=== PATIENT | male | born 1940 | race Caucasian/White ===

== ENCOUNTER 2022-03-09 18:20 | Inpatient (IN) | payer MEDICARE, SELFPAY ==
[2022-03-09 18:46] VITALS: BP 142/51; PULSE 87; RESP 16; TEMP 36.6; O2SAT 96; BMI 32.2
[2022-03-09 20:32] VITALS: BP 149/44; PULSE 66; RESP 16; TEMP 36.4; O2SAT 94
[2022-03-09] MEDS: Acetaminophen 500 MG Tablet 1000 MG PO (21:07)
[2022-03-09] MEDS: Senna/Docusate Sodium 1 Tablet 2 TABLET PO (21:07)
[2022-03-09] MEDS: oxyCODONE 5 MG Tablet PO (21:08)
[2022-03-10] VITALS (8 sets, daily range): BP systolic 121–154; BP diastolic 42–72; PULSE 66–84; RESP 16–18; TEMP 36.4–36.8; O2SAT 93–96
[2022-03-10] MEDS: Acetaminophen 500 MG Tablet 1000 MG PO ×3 (04:44→20:30)
[2022-03-10] MEDS: oxyCODONE 5 MG Tablet PO ×3 (04:44→14:29)
[2022-03-10] MEDS: Enoxaparin 40 MG/0.4 ML Syringe SC (05:09)
[2022-03-10 05:42] LABS: Hematocrit 34.4 % (40-54); Hemoglobin 11.5 g/dL (13.0-16.5); Mean Corp Hgb Conc 33.4 g/dL (32-36); Mean Corpuscular Hgb 32.1 pg (27.0-32.0); Mean Corpuscular Volume 96.1 fL (80-94); Mean Platelet Vol. 8.6 fl (6.2-12.0); Platelet Count 305 K/mm3 (150-450); RBC Distribution Width CV 12.3 % (11.6-14.6); RBC Distribution Width SD 43.9 fl (35.1-43.9); Red Blood Count 3.58 M/mm3 (4.6-6.2); White Blood Count 6.8 K/mm3 (4.4-11.0)
[2022-03-10 06:21] LABS: ALB/GLOB Ratio 0.6 RATIO (0.9-2.4); AST(SGOT) 27 U/L (15-37); Alanine Aminotransfer ALT/SGPT 12 U/L (16-61); Albumin, Serum 2.3 g/dL (3.2-5.0); Alkaline Phosphatase 89 U/L (45-117); Anion Gap 3 (5-15); BUN 45 mg/dL (7-18); BUN/Creat Ratio 41.3 RATIO (10-20); Calcium,Total 9.1 mg/dL (8.5-10.1); Chloride 102 mmol/L (98-107); Creatinine, Serum 1.09 mg/dL (0.70-1.30); EST Glomerular Filtration Rate 69 mL/min (>60); Est Glom Filt Rate - Afr Amer 84 mL/min (>60); Estimated Creatinine Clearance 53.17 ml/min; Globulin 3.8 g/dL (2.2-4.2); Glucose 110 mg/dL (74-106); Magnesium 2.4 mg/dL (1.6-2.6); Phosphorus 3.7 mg/dL (2.5-4.9); Protein, Total 6.1 g/dL (6.4-8.2); Sodium Level 138 mmol/L (136-145)
[2022-03-10] MEDS: Juven (unflavored) Packet 1 PACKET PO ×2 (09:11→16:28)
[2022-03-10] MEDS: Gabapentin 400 MG Capsule PO ×3 (09:12→16:01)
[2022-03-10] MEDS: Senna/Docusate Sodium 1 Tablet 2 TABLET PO ×2 (09:12→20:29)
[2022-03-10] MEDS: Famotidine 20 MG Tablet PO (09:12)
--- NOTE | 2022-03-10 10:40 | HP.PCM_ITS ---
HPI - General General Date of Admission: 03/09/22 Date of Service: 03/10/22 Chief Complaint: Hx of long standing osteomyelitis/infected hardware/failure of R ankle TTC fusion. 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 HPI Narrative MORGAN FAROOQ, is a 81 YO M with a PMH of OA, GERD, hypertension, bilateral presbycusis, neuropathy, chronic pain, history of right ankle fusion in 2018, history of lumbar fusion and longstanding osteomyelitis of the right ankle. He has had many surgeries on the R ankle and his orthopedic surgeon felt that a R BKA was inevitable. Morgan was agreeable to the surgery and he was taken to the OR on 03/06/22 for a R BKA. The post operative course was unremarkable. He was seen by PT/OT post op and acute rehab was recommended. Morgan lives alone and has 3 steps to enter his home. He lives on 1 floor but, his laundry is in the basement. He had been using a rollator prior to the BKA. Morgan was transferred to the inpatient acute rehab floor at [facility] on 03/09/2022 for 3 hours of therapy daily to restore function/independence to a level that will allow him to return to his home and live independently going forward. Review of lab done 03/06/2022 shows a mildly macrocytic anemia with a hemoglobin of 12.3. HGB post op dropped to 11.5. Platelets were elevated at 441,000. Creatinine was 0.9 with a BUN of 25. Culture at the time of BKA grew few Staphylococcus lugdunensis sensitive to clin damycin, gentamicin, oxacillin, Bactrim and vancomycin. All lab done this morning at [facility] was personally reviewed. Hemoglobin is stable at 11.5. The white blood cell count is normal and platelets are within normal limits. Serum bicarb is mildly increased at 33. The potassium is 4.0 and the sodium is 138. BUN is markedly increased at 45 and his creatinine is 1.09, up from 0.9 preoperatively. The estimated creatinine clearance is 53. Fasting glucose is mildly elevated at 110. LFTs are within normal limits and magnesium and phosphorus are within normal limits. Calcium corrected for hypoalbuminemia is mildly increased to 10.5, possibly secondary to immobility. [facility] Medical History (Updated 03/10/22 @ 14:[address] Radha Skinner DO) GERD (gastroesophageal reflux disease) History of peptic ulcer disease HTN (hypertension) Insomnia Neuropathy Osteoarthritis Osteomyelitis of ankle or foot, right, acute Snoring Home Medications diclofenac sodium 100 mg tablet,extended release 24 hr 100 mg PO DAILY ARTHRITIS 03/09/22 [History Last Taken 03/09/22 08:00] gabapentin 400 mg capsule 400 mg PO TID NEUROPATHY 03/09/22 [History Last Taken 03/09/22] triamterene 75 mg-hydrochlorothiazide 50 mg tablet 1 tab PO DAILY BP 03/09/22 [History Last Taken 03/09/22 08:00] Allergy/AdvReac Type Severity Reaction Status Date / Time No Known Allergies Allergy Verified 03/09/22 19:55 Family History (Updated 03/10/22 @ 13:[address] Radha Skinner DO) Father Ruptured abdominal aortic aneurysm Mother Heart disease Congestive heart failure Other Sudden cardiac Family History other other (Denies FH of cancers, DM, strokes, heart disease other than the CHF in his mother.) Surgical History (Updated 03/10/22 @ 11:[address] Radha Skinner DO) Fusion of joint H/O bilateral cataract extraction History of below-knee amputation of right lower extremity History of herniorrhaphy History of lumbar spinal fusion History of total replacement of right ankle Hx of tonsillectomy Social History (Updated 03/10/22 @ 13:[address] Radha Skinner DO) adopted: No household members: none housing: house number of children: 1 Smoking Status: Former smoker pack-years: 60 Tobacco: How many years used: 40 how long ago did patient quit smoking: He quit smoking when he was 56 so, 25 years ago. Smoked 1 and 1/2 PPD alcohol intake: current alcohol intake frequency: 0-2 drinks per day Alcohol type: wine and hard liquor details: 2-3 drinks a day.....mixed and wine. substance use type: does not use ROS Constitutional Constitutional: Reports snoring, stops breathing during sleep and other Details: Has never had a sleep study. Takes Tylenol PM at bedtime to sleep. ; Denies anorexia, change in weight, chills, fatigue, fever(s), night sweats or weakness Eyes Eyes: Denies blurry vision, change in vision, eye pain or loss of vision ENT HEENT: Reports hearing loss; Denies abnormal hearing, dysphagia, headache(s), nasal congestion or sore throat Cardiovascular Cardiovascular: Denies chest pain, dyspnea on exertion, edema, lightheadedness, orthopnea, palpitations, paroxysmal nocturnal dyspnea or syncope Respiratory/Chest Respiratory/Chest: Denies cough, dyspnea, shortness of breath at rest, shortness of breath with exertion or wheezing Gastrointestinal Gastrointestinal: Reports dyspepsia; Denies abdominal pain, constipation, diarrhea, hematemesis, hematochezia, nausea or vomiting Genitourinary Genitourinary: Reports urinary frequency; Denies dysuria, hematuria, nocturia, urinary hesitancy, urinary incontinence or urinary urgency Musculoskeletal Musculoskeletal: Denies back pain, joint pain, joint swelling or neck pain Integumentary Integumentary: Reports alopecia; Denies jaundice Neurologic Neurologic: Reports radicular pain and other Details: has had radicular pain in both LE's but, he does not know why he has neuropathy.......I suspect due to nerve compression......has had a lumbar fusion in the past and he has been on Gabapentin for years ; Denies confusion, disequilibrium, dizziness, focal weakness, headache(s), paresthesias, seizures or tremor(s) Psychiatric Psychiatric: Reports depression and other Details: Depression was many years ago when he was getting ; Denies anxiety, homicidal ideation or suicidal ideation Endocrine Endocrinology: Denies change in body appearance, polydipsia or polyuria Hematologic/Lymphatic Hematologic/Lymphatic: Denies easy bleeding, easy bruising or lymphadenopathy Allergic/Immunologic Allergic/Immunologic: Denies rhinitis, eczemia or asthma Vital Signs Vital Signs Vital Signs: 03/09/22 18:46 03/09/22 20:32 03/09/22 20:54 Temperature 97.8 F 97.5 F L Temperature Source Temporal Temporal Pulse Rate 87 66 Pulse Strength Normal (2+) Respiratory Rate 16 16 Respiratory Effort Respiratory Pattern Blood Pressure 142/51 H 149/44 H Blood Pressure Mean 81 79 Blood Pressure Source Monitor Monitor Blood Pressure Position Semi-Fowlers Semi-Fowlers Blood Pressure Location Left Arm Right Arm Pulse Ox 96 94 Oxygen Delivery Method Room Air Room Air 03/09/22 22:00 03/10/22 00:15 03/10/22 07:41 Temperature 97.5 F L 97.9 F Temperature Source Temporal Temporal Pulse Rate 66 67 Pulse Strength Respiratory Rate 16 16 Respiratory Effort Normal Non-Labored Respiratory Pattern Normal Blood Pressure 149/44 H 154/65 H Blood Pressure Mean 79 94 Blood Pressure Source Monitor Blood Pressure Position Semi-Fowlers Blood Pressure Location Right Arm Pulse Ox 94 93 Oxygen Delivery Method Room Air Room Air Weight Weight: 212 lb Body Mass Index (BMI) 32.2 Physical Exam Const alert, oriented x3, no apparent distress and well nourished General Appearance: cooperative HEENT normocephalic and head/scalp atraumatic Mouth: moist mucous membranes abnormal Eyes PERRL, EOMs intact bilaterally, conjunctivae normal and no scleral icterus Neck supple and No nodes Neck Narrative: BL carotid bruits vs, radiation on CORTES from the RICS. Denies any hx of RF. 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 I suspect it also radiates into the bilateral carotid arteries or he could have bilateral carotid stenosis. GI normal to inspection, nondistended, normoactive bowel sounds, soft to palpation and non-tender GI Narrative: he has a ventral hernia despite having 2 surgeries to repair in the past. No masses and no rebound tenderness. no CVA tenderness Groin / Perineum Exam: Negative for edema or erythema Penis: normal penis Extremity Extremity Narrative: S/P R BKA. Will examine the stump with the next dressing change. The current bandage is dry. There is no edema of the L ankle. L DP pulse is strong. The R popliteal pulse is mildly decreased. Skin Rashes: no rashes Neuro oriented x3 and CN's II-XII intact bilaterally Psych mental status grossly normal, thought process normal, cooperative, affect normal, speech normal, activity/motor behavior normal, denies hallucinations, denies homicidal ideation and denies suicidal ideation Results Lab / Micro Data Result Diagrams: 03/10/22 05:31 03/10/22 05:31 Labs: Laboratory Results - last 24 hr 03/10/22 05:31: WBC 6.8, RBC 3.58 L, Hgb 11.5 L, Hct 34.4 L, MCV 96.1 H, MCH 32.1 H, MCHC 33.4, RDW Std Deviation 43.9, RDW Coeff of Sony 12.3, Plt Count 305, MPV 8.6 03/10/22 05:31: Sodium 138, Potassium 4.0, Chloride 102, Carbon Dioxide 33.0 H, Anion Gap 3 L, BUN 45 H, Creatinine 1.09, Estim Creat Clear Calc 53.17, Est GFR (MDRD) Af Amer 84, Est GFR (MDRD) Non-Af 69, BUN/Creatinine Ratio 41.3 H, Glucose 110 H, Calcium 9.1, Phosphorus 3.7, Magnesium 2.4, Total Bilirubin 0.50, AST 27, ALT 12 L, Alkaline Phosphatase 89, Total Protein 6.1 L, Albumin 2.3 L, Globulin 3.8, Albumin/Globulin Ratio 0.6 L Assessment & Plan Assessment/Plan (1) Hardware failure: PLAN: R ankle/foot (2) Osteomyelitis of ankle or foot, right, acute: PLAN: recurrent (3) History of below-knee amputation of right lower extremity: PLAN: 03/06/22 at [facility] (4) HTN (hypertension): (5) GERD (gastroesophageal reflux disease): PLAN: Continue famotidine (6) Neuropathy: PLAN: Continue gabapentin 400 mg 3 times daily (7) Osteoarthritis: (8) Macrocytic anemia: (9) Elevated BUN: PLAN: MM are moist......not sure why this is so elevated but, he was anemic prior to the BKA so will check a hemoccult stool. He has a remote hx of PUD and has dyspepsia at times and he is on Voltaren BID. Continue Voltaren at this time.....he s pretty adamant that he needs to have the Voltaren. (10) Snoring: (11) Insomnia: PLAN: Plan PLAN PT for gait stability OT for ADL's Analgesics as needed Bowel protocol Fall precautions Assess for Anxiety/Depression GI prophylaxis with famotidine DVT prophylaxis with Lovenox Follow up with PCP and orthopedic surgeon following DC from Rehab - PCP is Dr. Julio Quinteros in [place]. AM lab including CMP, CBC, Mag and Phos - all personally reviewed as well as all the documentation from [facility] Check a vitamin D level. The hydrochlorothiazide/triamterene was discontinued secondary to markedly elevated BUN. Will start lisinopril 5 mg daily for hypertension.. STOP BANG score is 7. Will get a overnight trending pulse ox. Benadryl 25 mg p.o. nightly at the insistence of the patient to help him sleep. Unit Exclusion This patient is an acute care inpatient being housed in the excluded unit because of capacity issues related to the disaster or emergency.: Yes Charges/Coding Visit Charges Inpatient E&M: 61195 Init Hosp L2
--- NOTE | 2022-03-10 11:36 | CASEMGMT ---
Social Work Pt agreed to notify SO to bring in copies of advanced directives.
[2022-03-10 13:51] LABS: Vitamin D,25 Hydroxy 80.8 ng/mL
--- NOTE | 2022-03-10 13:55 | NURSING ---
Called and left message with [facility] about dressing change orders.
--- NOTE | 2022-03-10 14:15 | REHABEVAL_ITS ---
Admission Information Primary Diagnosis:: Physical debility secondary to right BKA on 03/06/2022 at [facility]. Status Changes from Prescreening?: No changes Identified Actual Problem List:: Skin Intergrity, Pain, ALteration in Cmfrt, Alteration in Sleep, Mobility Impaired, Self Care Deficit, BP, Hypertension and Alteration- Leisure Activ. Potential Problem List:: DVT, Bleeding, Infection, UTI, Aspiration, Falls, Skin Integrity and Depression Risk of Complications DVT: LMWH and DANNI Hose Bleeding: Monitor Lab Values, Nursing to Teach Precautions for anti-coagulation therapy., Wound, if applicable, to be assessed every shift. and Stroke patients assessed for lethargy or change in status. Infection: Clinical Staff to Monitor for S/S of infection: and S/S of infection include fever, redness, warmth, etc. Urinary Tract Infection: Monitor for frequency, burning, discomfort, or incontinence. and Nursing will obtain urine sample for urinalysis and C&S when ordered. Aspiration: Clinical staff will monitor for coughing, drooling, congestion., Speech will evaluate swallowing and dsyphasia. and Nursing will monitor patient swallowing during meals. Falls: Patient will be evaluated for Fall Precautions and Patient will be placed on Fall Precautions as indicated per protocol. Skin Breakdown: Nursing will assess skin daily using assessment tool. and Nursing will place on Skin Breakdown Precautions as indicated. Pain: Clinical staff will assess patient's pain level per protocol., Medications will be given, if needed, and the pain level reassessed. and Other methods: Massage, distraction, decrease stimulus, etc. used PRN. Plan of Care Patient requires physician specializing in physical medicine and rehab oversight to provide close medical supervision of rehab issues including: Pain Management, Sleep Problems, Bowel and Bladder, Medical and co-morbidity Management, DVT prophylaxis, Rehabilitation Leadership and Coordination of treatment team Patient needs Physical Therapy: For a minimum of 1 hour and At least 5 out of 7 days Patient needs Physical Therapy to improve:: Mobility, Strengthening, Transfers, Stretching, ROM, Endurance, Stairs, Gait and Balance Patient needs Occupational Therapy: For a minimum of 1 hour and At least 5 out of 7 days Patient needs Occupational Therapy to improve ADL's incl.: Eating, Grooming, Bathing, Dressing, Toileting, Toilet transfers, Community Reintegration, Higher functioning activities, Household tasks, Adaptive Equipment, Splinting and Other activities as determined Patient requires 24/7 Rehabilitation Nursing for: Pain Issues, Identifying and preventing risk factors, Monitoring and reporting current medical conditions, Assisting with ambulation, transfer, and all ADL's, Teaching patients about disease process and medications, Family teaching, Providing safe environment, Bowel and Bladder Issues, Skin integrity and Medication Management Patient needs Barn Boss/ Case Management for: Discharge Planning, Arranging Home Equipment or Services and Family Interventions Patient needs Dietary and Nutrition Services for: Adequate Nutrition, Nutritional Supplements and Nutritional Education Goals Patient will remain: free from falls and or injury at time of discharge. Patient will perform bed mobility at: MOD I level of assist. Patient will complete transfers from bed to chair at: MOD I level of assist. Patient will ambulate: 100 feet and - (20 feet with a wheeled walker on various surfaces at standby assist to allow patient to return home alone) Patient will propel wheelchair: - (300 feet on various surfaces for community accessibility) Patient will complete upper body dressing at: - (Supervisory level) Patient will complete lower body dressing at: - (Supervisory level) Patient will complete toileting at: - (Supervised level) Patient will perform bathing at: - (on and off tub bench with mounted grab bars and bathing at SBA) Patient will complete grooming at: - (Supervision level) Patient will complete home management skills at: - Patient will achieve: - (3 steps with 1 handrail at contact-guard assist to allow access to home entrance. ) Patient will have pain level of: of 3 or less Patient's skin will: remain intact Patient will receive: adequate nutrition. Discharge Planning Estimated Length of stay (days): 10 Anticipated D/C Destination: Home with Home Health Was Preadmission Assessment Accurate?: Yes
[2022-03-10] MEDS: Lisinopril 5 MG Tablet PO (16:01)
[2022-03-10 16:16] LABS: Blood Gas Specimen Type VEN; VBG BASE EXCESS 7 mmol/L (-1.0-3.5); VBG Bicarbonate 31 mmol/L (22-26); VBG PO2 42 mmHg (25-40); VBG SO2 76 % (50-70); VBG TCO2 33 mmol/L (23-33); VBG pCO2 51.3 mmHg (41-51)
[2022-03-11] MEDS: oxyCODONE 5 MG Tablet PO ×4 (03:29→21:12)
[2022-03-11] MEDS: Enoxaparin 40 MG/0.4 ML Syringe SC (05:36)
[2022-03-11] MEDS: Acetaminophen 500 MG Tablet 1000 MG PO ×2 (05:36→14:34)
[2022-03-11 07:10] VITALS: O2SAT 94
[2022-03-11 07:39] VITALS: BP 135/63; PULSE 74; RESP 18; TEMP 36.6; O2SAT 95
[2022-03-11] MEDS: Senna/Docusate Sodium 1 Tablet 2 TABLET PO ×2 (08:18→21:09)
[2022-03-11] MEDS: Lisinopril 5 MG Tablet PO (08:19)
[2022-03-11] MEDS: Famotidine 20 MG Tablet PO (08:19)
[2022-03-11] MEDS: Gabapentin 400 MG Capsule PO ×3 (08:19→16:40)
[2022-03-11] MEDS: Juven (unflavored) Packet 1 PACKET PO ×2 (08:19→16:40)
[2022-03-11 12:00] VITALS: BP 150/52; PULSE 67; RESP 17; TEMP 36.8
[2022-03-11 17:07] VITALS: BP 145/62; PULSE 65; RESP 18; TEMP 36.7
[2022-03-11 19:30] VITALS: BP 91/48; PULSE 75; RESP 18; TEMP 36.3; O2SAT 93
[2022-03-12] MEDS: Enoxaparin 40 MG/0.4 ML Syringe SC (05:26)
[2022-03-12] MEDS: Acetaminophen 500 MG Tablet 1000 MG PO ×2 (05:26→13:51)
[2022-03-12] MEDS: oxyCODONE 5 MG Tablet PO ×3 (05:29→21:42)
--- NOTE | 2022-03-12 06:03 | NURSING ---
Pt does not want to bath or get dressed at this time. Pt sated he has never taken a bath at 530am. Pt will take it after breakfast today
[2022-03-12 08:46] VITALS: BP 130/57; PULSE 66; RESP 18; TEMP 36.1; O2SAT 97
[2022-03-12 08:47] VITALS: BP 130/57; PULSE 66; RESP 18; TEMP 36.1; O2SAT 97
[2022-03-12] MEDS: Lisinopril 5 MG Tablet PO (08:58)
[2022-03-12] MEDS: Juven (unflavored) Packet 1 PACKET PO ×2 (08:58→17:00)
[2022-03-12] MEDS: Senna/Docusate Sodium 1 Tablet 2 TABLET PO ×2 (08:58→21:42)
[2022-03-12] MEDS: Gabapentin 400 MG Capsule PO ×3 (08:58→17:00)
[2022-03-12] MEDS: Famotidine 20 MG Tablet PO (08:58)
[2022-03-12 20:45] VITALS: O2SAT 94
[2022-03-12 21:53] VITALS: BP 125/59; PULSE 83; RESP 18; TEMP 36.7; O2SAT 93
[2022-03-12 21:54] VITALS: BP 125/59; PULSE 83; RESP 18; TEMP 36.7; O2SAT 93
[2022-03-13] MEDS: Acetaminophen 500 MG Tablet 1000 MG PO ×2 (05:15→14:45)
[2022-03-13] MEDS: oxyCODONE 5 MG Tablet PO ×4 (05:15→21:04)
[2022-03-13] MEDS: Enoxaparin 40 MG/0.4 ML Syringe SC (05:16)
[2022-03-13 07:43] VITALS: BP 150/66; PULSE 64; RESP 18; TEMP 36.1; O2SAT 94
[2022-03-13] MEDS: Juven (unflavored) Packet 1 PACKET PO ×2 (08:21→16:56)
[2022-03-13] MEDS: Famotidine 20 MG Tablet PO (08:21)
[2022-03-13] MEDS: Gabapentin 400 MG Capsule PO ×3 (08:21→16:56)
[2022-03-13] MEDS: Senna/Docusate Sodium 1 Tablet 2 TABLET PO ×2 (08:22→21:04)
[2022-03-13] MEDS: Lisinopril 5 MG Tablet PO (08:22)
--- NOTE | 2022-03-13 12:48 | CASEMGMT ---
Social Work IDT met with patient and DIL for Team meeting. Discussed patient's progress in PT/OT/SN. [facility] and continued stay is not guaranteed. Scheduled family training for 03/15, with anticipation for DC 03/18. Recommending HHC and w/c. Pt agreeable. SW offered skilled HHC list with quality and resource data. Pt denied list and used [facility] prior. SW sent referral via [employer]. SW made referral via [facility] to [facility] for w/c with elevating leg rests. Pt and DIL are agreeable to DC home 03/18. Plan: DC home alone 03/18, [facility] PT/OT/SN CIRO DuttaW
--- NOTE | 2022-03-13 12:49 | NURSING ---
received call form [facility] dressing to stay in place until F/U appointment on 03/20
--- NOTE | 2022-03-13 18:34 | PCM.PROGNOTE ---
Subjective Subjective Perez was seen on team rounds today. His [id number] was present in the room. Afebrile VSS Maintaining appropriate oxygen saturation on RA Oral intake is not being monitored by nursing. Will order I&O's since BUN was >>creat last week. Post void residual on 03/12/2022 was high at 212. Discussed with nursing - no problems that need addressed Reviewed the PT/OT notes - He is impulsive and sometimes he forgets his R leg is gone and he does not have it to pivot on. Medication list reviewed. He states pain is adequately controlled. He took 3 doses of 5 mg of oxycodone yesterday and today he has had 10 mg 3 times in 12 hours. He slept well last night and he has not taken Benadryl even once since it was ordered. Has been taking Voltaren 50 mg BID. He denies chest pain, shortness of breath, palpitations, lightheadedness, nausea/vomiting/abdominal pain, dysuria and cough. He is concerned about the dressing not being changed and there being some drainage soaking through the bandage. It was reinforced by nursing yesterday. He is afraid of infection. The surgeon was contacted by nursing and he does not want the dressing removed by anyone other than himself. He has an appt on Sunday. We told Perez and his dtr-in-law this while on rounds. His dtr-in-law is a nurse. Objective Data Objective Data Vital Signs: Vital Signs Temp Pulse Resp BP Pulse Ox O2 Del Method O2 Flow Rate 97.0 F L 64 18 150/66 H 94 Room Air 0 03/13/22 07:43 03/13/22 07:43 03/13/22 07:43 03/13/22 07:43 03/13/22 07:43 03/12/22 21:54 03/12/22 08:46 FiO2 21 03/10/22 22:08 Oxygen Flow Rate (L/min) 0 Oxygen Delivery Method Room Air Weight: 212 lb Body Mass Index (BMI) 32.2 Intake & Output: Intake and Output for Last 24 Hours 03/11/22 03/12/22 03/13/22 23:59 23:59 23:59 Intake Total 360 / 360 480 / 480 240 / 240 Output Total 200 / 200 Balance 360 / 360 480 / 480 40 / 40 Lab / Micro Data Result Diagrams: 03/10/22 05:31 03/10/22 05:31 Physical Exam Const alert, oriented x3 and no apparent distress Constitutional Narrative: [place] General Appearance: cooperative Resp clear to auscultation bilaterally Cardio regular rate, regular rhythm and no gallops GI normal to inspection, nondistended, normoactive bowel sounds, soft to palpation and non-tender Extremity no calf tenderness General Extremity: Negative for edema Assessment & Plan Assessment/Plan (1) Physical debility: (2) Osteomyelitis of ankle or foot, right, acute: (3) History of below-knee amputation of right lower extremity: (4) Macrocytic anemia: (5) Elevated BUN: PLAN: Plan 1. Continue therapy. He is willing to stay through Sunday and will DC on Sunday. 2. Check CBC with diff and BMP in the AM 3. Check 3 more PVR's 4. Orthostatic VS's in the AM......if negative consider doxazosin 1 mg p.o. at bedtime to help with urine retention 5. Needs a WC for home Charges/Coding Visit Charges Inpatient E&M: 52181 Subs Hosp L2
[2022-03-13 20:10] VITALS: BP 110/50; PULSE 72; RESP 18; TEMP 36.4; O2SAT 96
[2022-03-13 22:00] VITALS: O2SAT 96
[2022-03-14] MEDS: Enoxaparin 40 MG/0.4 ML Syringe SC (04:44)
[2022-03-14] MEDS: Acetaminophen 500 MG Tablet 1000 MG PO ×2 (04:44→13:21)
[2022-03-14] MEDS: oxyCODONE 5 MG Tablet PO ×5 (04:44→23:15)
[2022-03-14 05:23] LABS: Absolute Lymphocyte Count 1.31 X10^3/uL (0.83-4.51); Basophil# 0.05 X10^3/uL; Basophil% 0.8 % (0-1); Eosinophil# 0.37 X10^3/uL; Eosinophils% 5.8 % (0-5); Hemoglobin 10.9 g/dL (13.0-16.5); Lymphocyte # 1.31 X10^3/ul (0.83-4.51); Lymphocyte % 20.6 % (19-41); Mean Corp Hgb Conc 32.1 g/dL (32-36); Mean Corpuscular Hgb 30.8 pg (27.0-32.0); Mean Platelet Vol. 8.7 fl (6.2-12.0); Monocyte# 0.63 X10^3/uL; Monocyte% 9.9 % (0-10); NRBC Flagged by Analyzer 0 % (0-5); Neutrophil # 3.96 X10^3/uL (2.7-7.7); Neutrophil % 62.3 % (47-70); Platelet Count 303 K/mm3 (150-450); RBC Distribution Width CV 12.4 % (11.6-14.6); RBC Distribution Width SD 43.4 fl (35.1-43.9); Red Blood Count 3.54 M/mm3 (4.6-6.2); White Blood Count 6.4 K/mm3 (4.4-11.0)
[2022-03-14 05:45] LABS: Anion Gap 3 (5-15); BUN 65 mg/dL (7-18); BUN/Creat Ratio 55.6 RATIO (10-20); Chloride 105 mmol/L (98-107); Creatinine, Serum 1.17 mg/dL (0.70-1.30); EST Glomerular Filtration Rate 64 mL/min (>60); Est Glom Filt Rate - Afr Amer 77 mL/min (>60); Estimated Creatinine Clearance 49.53 ml/min; Glucose 96 mg/dL (74-106); Potassium 4.8 mmol/L (3.5-5.1); Sodium Level 140 mmol/L (136-145)
[2022-03-14 06:01] VITALS: BP 117/48; BP 128/45; BP 130/55; PULSE 68; PULSE 69; PULSE 71
[2022-03-14] MEDS: Juven (unflavored) Packet 1 PACKET PO ×2 (07:56→16:48)
[2022-03-14] MEDS: Lisinopril 5 MG Tablet PO (07:56)
[2022-03-14] MEDS: Gabapentin 400 MG Capsule PO ×3 (07:57→16:48)
[2022-03-14] MEDS: Senna/Docusate Sodium 1 Tablet 2 TABLET PO ×2 (07:57→21:07)
[2022-03-14] MEDS: Famotidine 20 MG Tablet PO (07:57)
[2022-03-14 08:33] VITALS: BP 130/55; PULSE 68; RESP 18; TEMP 36.8; O2SAT 96
[2022-03-14 19:22] VITALS: BP 133/62; PULSE 57; RESP 17; TEMP 36.8; O2SAT 95
[2022-03-14 22:00] VITALS: PULSE 70; RESP 16; O2SAT 97
[2022-03-15] MEDS: Enoxaparin 40 MG/0.4 ML Syringe SC (05:37)
[2022-03-15] MEDS: Acetaminophen 500 MG Tablet 1000 MG PO ×3 (05:47→20:22)
[2022-03-15] MEDS: oxyCODONE 5 MG Tablet PO ×4 (05:47→22:21)
[2022-03-15] MEDS: Gabapentin 400 MG Capsule PO ×3 (08:03→17:14)
[2022-03-15] MEDS: Juven (unflavored) Packet 1 PACKET PO ×2 (08:03→17:13)
[2022-03-15] MEDS: Famotidine 20 MG Tablet PO (08:03)
[2022-03-15] MEDS: Lisinopril 5 MG Tablet PO (08:03)
[2022-03-15] MEDS: Senna/Docusate Sodium 1 Tablet 2 TABLET PO ×2 (08:03→20:22)
[2022-03-15 08:28] VITALS: BP 158/59; PULSE 66; RESP 16; TEMP 36.4; O2SAT 94
--- NOTE | 2022-03-15 10:15 | NURSING ---
Notified Dr. Galiela Oneil's office that dressing is saturated. Spoke with Kwabena, he stated he will contact her staff since she is not in the office today and give us a return call with a response.
--- NOTE | 2022-03-15 11:10 | NURSING ---
Received return call from Dr. Oneil's office, spoke with Kwabena. Per Dr. Oneil dressing can be changed PRN and pt is to wear knee imbolizer when out of bed. However, per pt and S.O. knee imbolizer did not come with pt.
[2022-03-15 20:10] VITALS: BP 128/54; PULSE 69; RESP 16; TEMP 36.9; O2SAT 97
[2022-03-15] MEDS: DiphenhydrAMINE 25 MG Capsule PO (22:22)
[2022-03-16] MEDS: oxyCODONE 5 MG Tablet PO ×5 (03:24→21:23)
[2022-03-16] MEDS: Acetaminophen 500 MG Tablet 1000 MG PO ×2 (06:31→14:08)
[2022-03-16] MEDS: Enoxaparin 40 MG/0.4 ML Syringe SC (06:32)
[2022-03-16] MEDS: Juven (unflavored) Packet 1 PACKET PO ×2 (07:59→17:06)
[2022-03-16] MEDS: Gabapentin 400 MG Capsule PO ×3 (08:00→17:06)
[2022-03-16] MEDS: Famotidine 20 MG Tablet PO (08:00)
[2022-03-16] MEDS: Senna/Docusate Sodium 1 Tablet 2 TABLET PO ×2 (08:00→21:22)
[2022-03-16] MEDS: Lisinopril 5 MG Tablet PO (08:00)
[2022-03-16 08:44] VITALS: BP 147/56; PULSE 63; RESP 16; TEMP 36.4; O2SAT 100
--- NOTE | 2022-03-16 15:45 | PCM.PROGNOTE ---
Subjective Subjective Afebrile VSS Maintaining appropriate oxygen saturation on RA Oral intake has improved somewhat Discussed with nursing - no problems that need addressed Reviewed the PT/OT notes Medication list reviewed. Taking the Oxycodone about every 4H. Also on Gabapentin 400 mg TID and scheduled Tylenol. Denies shortness of breath, cough, chest pain, palpitations, nausea/vomiting/abdominal pain, dysuria and calf pain on the left. Today he told me that he gets episodic vertigo. He also has tinnitus and hearing loss. 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 He has no PRN medications at home for vertigo. Objective Data Objective Data Vital Signs: Vital Signs Temp Pulse Resp BP Pulse Ox O2 Del Method O2 Flow Rate 97.6 F L 63 16 147/56 H 100 Room Air 0 03/16/22 08:44 03/16/22 08:44 03/16/22 08:44 03/16/22 08:44 03/16/22 08:44 03/16/22 08:44 03/12/22 08:46 FiO2 21 03/10/22 22:08 Oxygen Flow Rate (L/min) 0 Oxygen Delivery Method Room Air Weight: 209 lb 3.499 oz Body Mass Index (BMI) 32.2 Intake & Output: Intake and Output for Last 24 Hours 03/14/22 03/15/22 03/16/22 23:59 23:59 23:59 Intake Total 1890 / 1890 1140 / 1140 700 / 700 Output Total 2200 / 2200 900 / 900 1400 / 1400 Balance -310 / -310 240 / 240 -700 / -700 Lab / Micro Data Result Diagrams: 03/17/22 05:45 03/17/22 05:45 Physical Exam Const alert, oriented x3 and no apparent distress General Appearance: cooperative HEENT Mouth: dry mucous membranes Eyes PERRL and EOMs intact bilaterally Resp normal respiratory effort and clear to auscultation bilaterally Cardio regular rate, regular rhythm, no murmurs and no gallops GI normal to inspection, nondistended, normoactive bowel sounds, soft to palpation and non-tender GI Narrative: No epigastric pain with palpation and no guarding. Extremity no calf tenderness Skin General Skin Exam: no breakdown Rashes: no rashes Wound Narrative: The original dressing is to be left on until he sees the surgeon next week. Assessment & Plan Assessment/Plan (1) Vertigo: (2) Physical debility: (3) History of below-knee amputation of right lower extremity: (4) Insomnia: (5) Snoring: (6) Elevated BUN: (7) HTN (hypertension): PLAN: Plan 1. Continue therapy 2. check a BMP and a CBC in the AM 3. Reminded him to increase fluids. 4. Will give him literature at [facility] about M?ni?re's disease and prescribed as needed Antivert. 5. He was very dehydrated at admission to rehab with a BUN/creatinine ratio of 41.3. The BUN then went up to 65 with a BUN/creatinine ratio of 55.6. He had been taking hydrochlorothiazide/triamterene 50/75 mg daily and was not drinking enough. PO intake of fluids is still poor. The diuretic was discontinued at admission on the day of discharge the BUN is still 44 with a creatinine of 1.11 and a BUN/creatinine of 39.6. 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 He is also to be on a low-salt diet. He was started on Lisinopril 5 mg daily for HTN. systolic BP is mildly elevated but the diastolic is WNL 6. Plan discharge home with home health care on 03/18/2022. Charges/Coding Visit Charges Inpatient E&M: 33299 Subs Hosp L2
[2022-03-16 20:30] VITALS: BP 143/60; PULSE 82; RESP 18; TEMP 36.7; O2SAT 96
[2022-03-16 21:25] VITALS: O2SAT 96
[2022-03-17] MEDS: oxyCODONE 5 MG Tablet PO ×3 (04:26→20:47)
[2022-03-17 05:50] LABS: Hematocrit 33.9 % (40-54); Mean Corp Hgb Conc 32.4 g/dL (32-36); Mean Corpuscular Hgb 30.8 pg (27.0-32.0); Mean Platelet Vol. 8.8 fl (6.2-12.0); Platelet Count 271 K/mm3 (150-450); RBC Distribution Width CV 12.5 % (11.6-14.6); RBC Distribution Width SD 43.1 fl (35.1-43.9); Red Blood Count 3.57 M/mm3 (4.6-6.2); White Blood Count 4.5 K/mm3 (4.4-11.0)
[2022-03-17 06:16] LABS: Anion Gap 2 (5-15); BUN 44 mg/dL (7-18); BUN/Creat Ratio 39.6 RATIO (10-20); Calcium,Total 8.4 mg/dL (8.5-10.1); Chloride 106 mmol/L (98-107); Creatinine, Serum 1.11 mg/dL (0.70-1.30); EST Glomerular Filtration Rate 68 mL/min (>60); Est Glom Filt Rate - Afr Amer 82 mL/min (>60); Estimated Creatinine Clearance 52.21 ml/min; Glucose 95 mg/dL (74-106); Potassium 4.5 mmol/L (3.5-5.1); Sodium Level 139 mmol/L (136-145)
[2022-03-17] MEDS: Acetaminophen 500 MG Tablet 1000 MG PO ×2 (06:21→14:48)
[2022-03-17] MEDS: Enoxaparin 40 MG/0.4 ML Syringe SC (06:22)
[2022-03-17 07:21] VITALS: BP 151/63; PULSE 63; RESP 14; TEMP 36.1; O2SAT 96
[2022-03-17] MEDS: Gabapentin 400 MG Capsule PO ×3 (07:43→16:18)
[2022-03-17] MEDS: Famotidine 20 MG Tablet PO (07:43)
[2022-03-17] MEDS: Senna/Docusate Sodium 1 Tablet 2 TABLET PO ×2 (07:43→20:47)
[2022-03-17] MEDS: Lisinopril 5 MG Tablet PO (07:43)
[2022-03-17] MEDS: Juven (unflavored) Packet 1 PACKET PO ×2 (07:44→16:13)
--- NOTE | 2022-03-17 14:32 | DCINST_ITS ---
Discharge Instructions Diet Discharge Diet: - (Low-fat, low salt.) Activity Discharge Activity: May Not Drive, May Shower and Use Walker Weight Bearing Status: No weight bearing (No weightbearing on the right lower extremity.) Keep extremity elevated above heart level: Legs Dressing / Incision Call your doctor if your incision/area has: Continuous Slow Oozing, Sudden Increased Bleeding, Increased Pain/ Swelling, Increased Redness and Foul Smelling Discharge Call your doctor if you observe: Fever of 101 or Higher, Inability to urinate, Inability to have a bowel movement, Shortness of breath, Dizziness, Chest pain, Increased palpitations (irregular heartbeat), Calf discomfort and Uncontrolled pain Suture Line Care: Avoid Pulling/Pushing and Avoid Pinching/Bending Change Dressing in: leave in place till F/U (Leave in place until you are seen by the surgeon. ) Follow Up Care Please Follow Up With: Dr. Galilea Oneil Test Results: Test results from this visit will be discussed in further detail at your follow- up appointment, if applicable. 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 Generally most people overestimate what they are capable of. Losing a low changes your balance and increases your risk for falls. If you need help ask for it. the important thing is you do not fall and traumatize the stump. Remember your are also taking narcotics and Gabapentin and these medications impair balance and cognition and increase risk for falls. The incision is healing and can easily break down/break open if you fall on it. Don't be a daredevil.......not worth the risk. 2. The left leg is vitally important to you. It will be having more stress because you are placing all your weight on the left leg. Make sure to check your left foot (even the bottom of the foot every day. Look for any openings in the skin, reddened areas, developing callouses and ingrown toenails. I would consider having your toenails cut by a counselor supervisor.....your insurance will pay for this in most cases every 6 weeks. 3. 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 This is a problem with the inner ear that cause ringing in the ears, hearing loss and vertigo. I have given you some literature to read to help minimize the frequency of the attacks. I am also giving you a Prescription for a medication to take as needed to help with the vertigo. 4. Your blood work shows that you are dehydrated. When you get dehydrated it causes lightheadedness when you stand up and this can lead to passing out or falling. Please increase your fluid intake. 5. You had your oxygen saturation monitor continuously while you were sleeping one night. You may have sleep apnea. I have given you some information about sleep apnea and I think you should discuss having a sleep study with your PCP. 6. Losing a leg can cause a variety of mental and emotional problems, even if you knew it was coming. IF you are anxious or depressed talk with your PCP, medication and or psychotherapy may help you. It is a big loss and puts a strain on your independence and relationships. There is help available. 7. You were and are dehydrated. You were on a high dose diuretic at admission to rehab. When you get dehydrated it decreases the intravascular volume and there is decreased delivery of blood to the limbs. Decreased blood supply and oxygen to the stump will lead to breakdown. I have placed you on a low dose diuretic and added Lisinopril to help with high blood pressure. You MUST drink enough to keep the urine a pale yellow. If it is dark yellow or orange you are not drinking enough. 8. Good luck with your recovery Perez. If you have any questions after you leave rehab please do not hesitate to call me. Office: [phone] Discharge Orders/Prescriptions Prescriptions: New acetaminophen 500 mg Tablet 1,000 mg PO Q8 Qty: 0 0RF lisinopril 5 mg Tablet 5 mg PO DAILY Qty: 30 0RF oxycodone 5 mg Tablet 5 - 10 mg PO Q4H PRN PRN (Reason: Pain Score 1-10) 7 Days Qty: 60 0RF [place] (with collagen) 7-7-1.5 gram Powder In Packet 1 packet PO BIDCM Qty: 28 0RF sennosides-docusate sodium [Stool Softener-Stimulant Laxat] 8.6-50 mg Tablet 2 tab PO BID Qty: 56 2RF meclizine 25 mg tablet 25 mg PO Q8H PRN PRN (Reason: vertigo) Qty: 20 0RF hydrochlorothiazide 12.5 mg capsule 12.5 mg PO DAILY Qty: 30 0RF Continued diclofenac sodium 100 mg Tablet Extended Release 24 Hr 100 mg PO DAILY gabapentin 400 mg Capsule 400 mg PO TID Discontinued triamterene-hydrochlorothiazid 75-50 mg Tablet 1 tab PO DAILY Referrals / Follow Up: Dr Galilea Oneil [Other] - 03/20/22 10:45 am Disposition Disposition (needs filled in before D/C Order can be placed): Home Health Service
--- NOTE | 2022-03-17 15:30 | DS.PCM_ITS ---
Providers Date of Admission: 03/09/22 Date of Discharge: 03/18/22 none Reason For Visit: R BKA Diagnosis Discharge Diagnosis (1) Physical debility: Status: Acute Code(s): R53.81 - Other malaise (2) Osteomyelitis of ankle or foot, right, acute: Status: Acute Code(s): M86.171 - Other acute osteomyelitis, right ankle and foot (3) Hardware failure: Status: Acute (4) History of below-knee amputation of right lower extremity: Status: Acute Code(s): Z89.511 - Acquired absence of right leg below knee (5) Dehydration, severe: Status: Acute Code(s): E86.0 - Dehydration (6) Macrocytic anemia: Status: Acute Code(s): D53.9 - Nutritional anemia, unspecified (7) Insomnia: Status: Acute Code(s): G47.00 - Insomnia, unspecified (8) Snoring: Status: Acute Code(s): R06.83 - Snoring (9) Sleep-disordered breathing: Status: Acute Code(s): G47.30 - Sleep apnea, unspecified Plan: Had an abnormal overnight trending pulse ox and will need a formal sleep study going forward. STOP BANG score is 6 which puts him at high risk for FRANCISCO. (10) HTN (hypertension): Status: Chronic Code(s): I10 - Essential (primary) hypertension Plan: The diuretic was discontinued at admission due to severe dehydration. He received IV fluids. A much lower dose of HCTZ, 12.5 mg, was restarted at [facility] for suspected M?ni?re's disease. He was instructed to increase fluid intake to prevent IV volume depletion and decreased blood flow to the stump. Lisinopril 5 mg was started for BP control. (11) M?ni?re's disease: Status: Suspected Code(s): H81.09 - Meniere's disease, unspecified ear (12) Osteoarthritis: Status: Acute Code(s): M19.90 - Unspecified osteoarthritis, unspecified site (13) Neuropathy: Status: Acute Code(s): G62.9 - Polyneuropathy, unspecified (14) GERD (gastroesophageal reflux disease): Status: Acute Code(s): K21.9 - Gastro-esophageal reflux disease without esophagitis (15) BPH (benign prostatic hyperplasia): Status: Suspected Code(s): N40.0 - Benign prostatic hyperplasia without lower urinary tract symptoms Plan: Started on Flomax. (16) Heart murmur on physical examination: Status: Acute Code(s): R01.1 - Cardiac murmur, unspecified Plan 1. Discharge home with home health care. [facility] PT/OT/SN 2. Has follow up with Dr. Oneil on 03/20/22 at 10:45AM 3. He will drink at least 1.5 to 2 liters of non-caffeinated liquids a day. 4. Hemoccult stool was negative 1 day prior to DC. 5. Change the dressing on the stump only if the dressing becomes saturated. 6. Consider a ECHO as an OP to evaluate the MM, sanju if he is having fevers. Morgan was AF throughout the duration of his stay on rehab. Medications at Discharge Home Medications diclofenac sodium 100 mg tablet,extended release 24 hr 100 mg PO DAILY ARTHRITIS 03/09/22 gabapentin 400 mg capsule 400 mg PO TID NEUROPATHY 03/09/22 acetaminophen 500 mg tablet 1,000 mg PO Q8 #0 tabs 03/17/22 arginine 7 gram-glutam 7 gram-CaHMB 1.5 iceg-suncb-qh-min oral pwd pkt ([place] (with collagen)) 1 packet PO BIDCM #28 ea 03/17/22 hydrochlorothiazide 12.5 mg capsule 12.5 mg PO DAILY #30 caps 03/17/22 lisinopril 5 mg tablet 5 mg PO DAILY #30 tabs 03/17/22 meclizine 25 mg tablet 25 mg PO Q8H PRN PRN vertigo #20 tabs 03/17/22 oxycodone 5 mg tablet 5 - 10 mg PO Q4H PRN PRN Pain Score 1-10 7 days #60 tabs 03/17/22 sennosides 8.6 mg-docusate sodium 50 mg tablet (Stool Softener-Stimulant Laxative) 2 tab PO BID #56 tabs 03/17/22 tamsulosin 0.4 mg capsule 0.4 mg PO QHS #30 caps 03/17/22 Hospital Course Operations - (03/06/22 R WINTERA - Dr. Galilea Oneil) Procedures None Summary of Care Provided Minutes Spent on Discharge: 45 Hospital Course: MORGAN FAROOQ, is a 81 YO M with a PMH of OA, GERD, hypertension, bilateral presbycusis, neuropathy, chronic pain, history of right ankle fusion in 2018, longstanding osteomyelitis of the right ankle and hx of lumbar surgery in the past. He has had many surgeries on the R ankle and his orthopedic surgeon felt that a R BKA was inevitable.? Morgan was agreeable to the surgery and he was taken to the OR on 03/06/22 for a R BKA.? The post operative course was u nremarkable.? He was seen by PT/OT post op and acute rehab was recommended.? Morgan lives alone and has 3 steps to enter his home.? He lives on 1 floor but, his laundry is in the basement.? He had been using a rollator and a knee walker prior to the BKA.? Morgan was transferred to the inpatient acute rehab floor at [facility] on 03/09/2022 for 3 hours of therapy daily to restore function/independence to a level that will allow him to return to his home and live independently going forward. Morgan was severely dehydrated at admission to rehab and orthostatic. He was taking triamterene 75 mg/hydrochlorothiazide 50 mg daily for hypertension. This was discontinued at admission and he was hydrated with normal saline. Orthostatics were normal following hydration and IV fluids were discontinued but, his fluid intake was poor and prior to DC we had to give IV fluids again. I explained to him that creased intravascular volume will lead to decreased perfusion of the extremities and may put the stump healing at risk. I advised him to drink at least 1-1/2 to 2 L of noncaffeinated fluid daily following discharge. The BP increased off the diuretic and he was started on lisinopril 5 mg p.o. daily. Systolic blood pressure was mildly increased at discharge but he had just been restarted on a smaller dose of hydrochlorothiazide, 12.5 mg daily for suspected M?ni?re's disease, and this may bring the systolic down. I suspect the elevated systolic blood pressure also has to do with him being anxious about infection and having continued pain. We were to leave the dressing on until Morgan had his follow up appt with Dr. Oneil however, he had a large amount of serous drainage that soaked through the dressing. We were concerned about possible maceration and with Dr. Oneil's permission the dressing was changed. The day prior to DC there is a shiny purplish discoloration of the most distal stump. There was no opening in the skin and no increased warmth to touch. There was an eschar laterally just proximal to the incision that is not open and there is no DC. there is no erythema or increased warmth to touch around the eschar. during his admission someone came and fitted him with a slitting machine feeder. Morgan had post void residuals with urination that ranged for 79 to 212. We did not have to straight cath. He admitted to urinary urgency, frequency and no cturia at home prior to the surgery. He was started on Flomax 0.4 mg daily for suspected BPH. Morgan had no vertigo during his admission to rehab but, he does have vertigo on an intermittent basis. He also admitted to hearing loss (has BL hearing aids) and also tinnitus. HCTZ was restarted at discharge because of suspected M?ni?re's disease but at a much lower dose of 12.5 mg daily. Morgan did very well in therapy. Prior to discharge he was supervision/set up for upper body dressing and independent with eating. He was contact-guard assist for lower body dressing and independent for toileting and toilet transfer. He was able to propel the wheelchair 170 feet at supervision. He was able to ambulate 20 feet with a front wheeled walker at contact-guard assist. He was standby assist for sit to stands and stand pivot and getting in and out of bed at supervision. His dtr-in-law is an [employer] and she will be assisting Morgan at home. His son will be helping as well and he also has a GF who will help as well. He will be getting HHC with [facility] and will have PT/OT/SN. Priscila has an appt with Dr. Oneil on 03/20/22 and he will also be following up with his PCP in [place]. At the time of DC he is still having considerable pain and continues to take Oxycodone 10 mg approximately every 4 hours, Tylenol 1 g every 8 hours and Gabapentin 400 mg TID for pain. Physical Exam Const alert, oriented x3, no apparent distress and well nourished Constitutional Narrative: [facility] General Appearance: cooperative Eyes PERRL, EOMs intact bilaterally, conjunctivae normal and no scleral icterus Neck supple and No nodes Neck Narrative: BL carotid bruits vs, radiation on CORTES from the RICS. Denies any hx of RF. 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 I suspect it also radiates into the bilateral carotid arteries or he could have bilateral carotid stenosis. GI normal to inspection, nondistended, normoactive bowel sounds, soft to palpation and non-tender GI Narrative: No epigastric pain with palpation and no guarding. no CVA tenderness Extremity no calf tenderness Extremity Narrative: The dressing had minimal dried serous drainage on it today. The incision is intact with no purulent DC. There is no miguel-incisional erythema. The most distal area of the stump has a shiny appearance and a purplish discoloration. There is no opening in the skin. The area was well padded when the dressing was reapplied. There is also an eschar on the lateral side of the R leg at the knee, just proximal to the incision with no DC and no visible opening in the skin. General Extremity: Negative for edema Skin General Skin Exam: no breakdown Rashes: no rashes Neuro oriented x3 and CN's II-XII intact bilaterally Psych mental status grossly normal, thought process normal, cooperative, affect normal, speech normal, activity/motor behavior normal, denies hallucinations, denies homicidal ideation and denies suicidal ideation Weight / BMI Weight Weight: 209 lb 3.499 oz Body Mass Index (BMI) 32.2 ABG / Lab / Microbiology Data Result Diagrams: 03/17/22 05:45 03/17/22 05:45 Laboratory: Laboratory Results - last 24 hr 03/17/22 05:45: WBC 4.5, RBC 3.57 L, Hgb 11.0 L, Hct 33.9 L, MCV 95.0 H, MCH 30.8, MCHC 32.4, RDW Std Deviation 43.1, RDW Coeff of Sony 12.5, Plt Count 271, MPV 8.8 03/17/22 05:45: Sodium 139, Potassium 4.5, Chloride 106, Carbon Dioxide 31.0, Anion Gap 2 L, BUN 44 H, Creatinine 1.11, Estim Creat Clear Calc 52.21, Est GFR (MDRD) Af Amer 82, Est GFR (MDRD) Non-Af 68, BUN/Creatinine Ratio 39.6 H, Glucose 95, Calcium 8.4 L Microbiology: Microbiology 03/17/22 15:00 Stool Stool Occult Blood (PRATIK) - Final D/C Instructions Discharge Diet: - (Low-fat, low salt.) Weight Bearing Status: No weight bearing (No weightbearing on the right lower extremity.) Keep extremity elevated above heart level: Legs Call your doctor if your incision/area has: Continuous Slow Oozing, Sudden Increased Bleeding, Increased Pain/ Swelling, Increased Redness and Foul Smelling Discharge Call your doctor if you observe: Fever of 101 or Higher, Inability to urinate, Inability to have a bowel movement, Shortness of breath, Dizziness, Chest pain, Increased palpitations (irregular heartbeat), Calf discomfort and Uncontrolled pain Suture Line Care: Avoid Pulling/Pushing and Avoid Pinching/Bending Pending Tests Upon Discharge: none Please Follow Up With: Dr. 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 Generally most people overestimate what they are capable of. Losing a low changes your balance and increases your risk for falls. If you need help ask for it. the important thing is you do not fall and traumatize the stump. Remember your are also taking narcotics and Gabapentin and these medications impair balance and cognition and increase risk for falls. The incision is healing and can easily break down/break open if you fall on it. Don't be a daredevil.......not worth the risk. 2. The left leg is vitally important to you. It will be having more stress because you are placing all your weight on the left leg. Make sure to check your left foot (even the bottom of the foot every day. Look for any openings in the skin, reddened areas, developing callouses and ingrown toenails. I would consider having your toenails cut by a broom worker.....your insurance will pay for this in most cases every 6 weeks. 3. 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 This is a problem with the inner ear that cause ringing in the ears, hearing loss and vertigo. I have given you some literature to read to help minimize the frequency of the attacks. I am also giving you a Prescription for a medication to take as needed to help with the vertigo. 4. Your blood work shows that you are dehydrated. When you get dehydrated it causes lightheadedness when you stand up and this can lead to passing out or falling. Please increase your fluid intake. 5. You had your oxygen saturation monitor continuously while you were sleeping one night. You may have sleep apnea. I have given you some information about sleep apnea and I think you should discuss having a sleep study with your PCP. 6. Losing a leg can cause a variety of mental and emotional problems, even if you knew it was coming. IF you are anxious or depressed talk with your PCP, medication and or psychotherapy may help you. It is a big loss and puts a strain on your independence and relationships. There is help available. 7. You were and are dehydrated. You were on a high dose diuretic at admission to rehab. When you get dehydrated it decreases the intravascular volume and there is decreased delivery of blood to the limbs. Decreased blood supply and oxygen to the stump will lead to breakdown. I have placed you on a low dose diuretic and added Lisinopril to help with high blood pressure. You MUST drink enough to keep the urine a pale yellow. If it is dark yellow or orange you are not drinking enough. 8. Good luck with your recovery Morgan. If you have any questions after you leave rehab please do not hesitate to call me. Office: [phone] Discharge Orders/Prescriptions Prescriptions: New acetaminophen 500 mg Tablet 1,000 mg PO Q8 Qty: 0 0RF lisinopril 5 mg Tablet 5 mg PO DAILY Qty: 30 0RF oxycodone 5 mg Tablet 5 - 10 mg PO Q4H PRN PRN (Reason: Pain Score 1-10) 7 Days Qty: 60 0RF [place] (with collagen) 7-7-1.5 gram Powder In Packet 1 packet PO BIDCM Qty: 28 0RF sennosides-docusate sodium [Stool Softener-Stimulant Laxat] 8.6-50 mg Tablet 2 tab PO BID Qty: 56 2RF meclizine 25 mg tablet 25 mg PO Q8H PRN PRN (Reason: vertigo) Qty: 20 0RF hydrochlorothiazide 12.5 mg capsule 12.5 mg PO DAILY Qty: 30 0RF tamsulosin 0.4 mg capsule 0.4 mg PO QHS Qty: 30 0RF Continued diclofenac sodium 100 mg Tablet Extended Release 24 Hr 100 mg PO DAILY gabapentin 400 mg Capsule 400 mg PO TID Discontinued triamterene-hydrochlorothiazid 75-50 mg Tablet 1 tab PO DAILY Referrals / Follow Up: Dr Galilea Oneil [Other] - 03/20/22 10:45 am Disposition Disposition (needs filled in before D/C Order can be placed): Home Health Service Charges/Coding Visit Charges Inpatient E&M: 62396 Disch Hosp
[2022-03-17] MEDS: 0.9% Saline Lock 10 ML Syringe IV (17:58)
[2022-03-17] MEDS: 0.9% Normal Saline 1,000 ML 100 ML IV ×2 (17:59→22:34)
[2022-03-17 20:44] VITALS: BP 136/61; PULSE 69; RESP 18; TEMP 36.8; O2SAT 98
[2022-03-17 21:30] VITALS: O2SAT 98
[2022-03-18] MEDS: oxyCODONE 5 MG Tablet PO ×2 (04:24→08:51)
[2022-03-18] MEDS: Acetaminophen 500 MG Tablet 1000 MG PO (04:27)
[2022-03-18] MEDS: Enoxaparin 40 MG/0.4 ML Syringe SC (04:29)
[2022-03-18] MEDS: Juven (unflavored) Packet 1 PACKET PO (08:17)
[2022-03-18] MEDS: Gabapentin 400 MG Capsule PO (08:17)
[2022-03-18] MEDS: Famotidine 20 MG Tablet PO (08:17)
[2022-03-18] MEDS: Lisinopril 5 MG Tablet PO (08:17)
[2022-03-18] MEDS: Senna/Docusate Sodium 1 Tablet 2 TABLET PO (08:17)
[2022-03-18 09:00] VITALS: BP 154/72; PULSE 70; RESP 18; TEMP 36.6; O2SAT 96
--- NOTE | 2022-03-18 09:00 | NURSING ---
Discharge instructions provided to patient and to family and verbalized understanding.
[2022-03-18 09:22] VITALS: BP 154/72; PULSE 70; RESP 18; TEMP 36.6; O2SAT 96
== END 2022-03-18 09:00 | disposition home health service (06) | DRG 560 ==
PROVIDERS: Admitting Provider Internal Medicine; Visit Provider Internal Medicine
DX: Z47.81 Encounter for orthopedic aftercare following surgical amputation (principal); M86.171 Other acute osteomyelitis, right ankle and foot; Z89.511 Acquired absence of right leg below knee; K21.9 Gastro-esophageal reflux disease without esophagitis; G62.9 Polyneuropathy, unspecified; I10 Essential (primary) hypertension; D53.9 Nutritional anemia, unspecified; G47.30 Sleep apnea, unspecified; M19.90 Unspecified osteoarthritis, unspecified site; H93.19 Tinnitus, unspecified ear; H81.09 Meniere's disease, unspecified ear; Z87.891 Personal history of nicotine dependence; R01.1 Cardiac murmur, unspecified; Z79.899 Other long term (current) drug therapy
CPT/HCPCS: 36415; 80048; 80053; 82274; 82306; 82803; 83735; 84100; 85025; 85027; 94762; 97110; 97116; 97162; 97166; 97530; 97535; 97542; 97802; 97803; J7030; A4216